=== PATIENT | male | born 1990 | race Caucasian/White ===

== ENCOUNTER 2020-09-14 08:30 | Outpatient (RCR) | payer OTHER, SELFPAY ==
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
--- NOTE | 2020-09-11 14:03 | PCPTNOTE ---
Patient called & cancelled scheduled appointment this date, no reason given.
--- NOTE | 2020-09-16 09:59 | PCPTNOTE ---
Patient did not show up for scheduled appointment this date. PT called patient-had to leave a message. The patient has no other appointments scheduled at this time and we will await his call and schedule next appt. then.
--- NOTE | 2020-09-30 15:21 | PCPTNOTE ---
PHYSICAL THERAPY DISCHARGE Attending Provider: Sherin Mace, Patient:Devin Hoffman II Date of :1990 Patient has not returned for any further treatments since 09/14/2020, therefore he will be discharged at this time. Patient?s initial visit was on 09/02/2020 08:30 and he had a total of 3 visits. The patient had been scheduled for evaluation with new orders for LBP and right ankle, but patient did not show and did not call to reschedule appt. The goals have been partially met, mainly for the right ankle. Thank you for referring this patient to [facility]. Please review, sign, date and return this discharge summary JORDYN. I have been updated about the patient's current status and I agree with discharge from the above service at this time. Referring Physician Date
== END 2020-10-01 07:37 | disposition home or self-care (01) ==
LOC: ANHPT 08:30
PROVIDERS: PCP Family Medicine; Referring Provider Family Medicine; Visit Provider Family Medicine
DX: S99.911D Unspecified injury of right ankle, subsequent encounter (principal); M54.5 Low back pain; G89.29 Other chronic pain
CPT/HCPCS: 97110; 97161